=== PATIENT | female | born 1985 | race Caucasian/White ===

== ENCOUNTER 2019-01-04 16:10 | Inpatient (IN) | payer OTHER ==
[~2019-01-04] VITALS: Ht 167.6 cm; Wt 120.8 kg
[2019-01-04 16:20] VITALS: BP 135/75
--- NOTE | 2019-01-04 16:31 | NUR ---
PTS MOTHER AND FATHER AT BEDSIDE FOR SUPPORT.
[2019-01-04 17:00] LABS: BASO % 0.6 % (0.0-1.0); EOS # 0.2 10*3/uL (0.0-0.4); EOS % 2.5 % (1.0-4.0); HEMATOCRIT 35.1 % (37.0-47.0); HEMOGLOBIN 11.3 g/dl (12.0-16.0); LYMPH # 1.6 10*3/uL (1.3-4.4); LYMPH % 25.2 % (27.0-41.0); MEAN CELL VOLUME 86.7 fl (81.0-99.0); MEAN CORPUSCULAR HGB 27.9 pg (27.0-31.0); MEAN CORPUSCULAR HGB CONC 32.2 g/dl (33.0-37.0); MEAN PLATELET VOLUME 10.7 fl (9.6-12.3); MONO # 0.5 10*3/uL (0.1-1.0); MONO % 7.8 % (3.0-9.0); NEUT # 4.2 10*3/uL (2.3-7.9); NEUT % 63.6 % (47.0-73.0); PLATELET COUNT AUTOMATED 244 10*3/uL (130-400); RED BLOOD COUNT 4.05 10*6/uL (4.10-5.10); RED CELL DISTRI WIDTH 14.8 % (0-14.5); WHITE BLOOD COUNT 6.5 10*3/uL (4.8-10.8)
[2019-01-04 17:11] LABS: ACT PARTIAL THROMBO TIME 30.5 SECONDS (20.0-32.1)
[2019-01-04 17:38] LABS: ALBUMIN 3.3 gm/dl (3.1-4.5); ALKALINE PHOSPHATASE 85 U/L (45-117); BUN 13 mg/dl (7-24); CHLORIDE 105 mmol/L (98-107); CREATININE 0.77 mg/dL (0.55-1.02); POTASSIUM 3.4 mmol/L (3.5-5.1); SGOT/AST 14 IU/L (3-35); SGPT/ALT 26 U/L (12-78); SODIUM 138 mmol/L (136-145); TOTAL PROTEIN 7.5 gm/dL (6.4-8.2)
[2019-01-04 17:46] LABS: B-hCG (QUALITATIVE) NEGATIVE (NEGATIVE)
[2019-01-04 17:48] LABS: ETHYL ALCOHOL < 3.0 mg/dl (<3)
[2019-01-04 17:53] VITALS: BP 100/54
[2019-01-04 18:47] VITALS: BP 102/75
--- NOTE | 2019-01-04 18:59 | NUR ---
PT RECEIVED DINNER TRAY AT THIS TIME.
[2019-01-04 21:00] VITALS: BP 101/58
--- NOTE | 2019-01-04 21:00 | NUR ---
A 33yr old female, admitted to ICCU, under the services of JULIETTE Bautista DO with a diagnosis of CELLULITIS RT LEG, METHAMPHETAMINE USE, SUICIDAL IDEATIONS. Chief complaint is thinks the Meth she used yesterday was "messing with her brain". Patient arrived via stretcher from ER. Monitor applied. Initial assessment completed. Vital signs taken and recorded. See assessment for past medical history, medications and allergies. Patient and/or family oriented to unit. [facility] ICCU visitation policy reviewed. Clothing/patient valuable form completed. Patient arrives with an IV in her left external jugular. She has multiple scabs, scars and open areas to her arms. She had a capped, used Insulin syringe in her jeans pocket which she handed to us and asked us to discard. ARIC SEGURA L
--- NOTE | 2019-01-04 21:00 | NUR ---
PT. REFUSED MEASUREMENTS AND PICTURES OF GROIN ABSCESS AND MULTIPLE SMALL OPEN AREAS ON ARMS, LEGS, FACE AND TORSO.
--- NOTE | 2019-01-04 21:34 | NUR ---
PT. DENIES SUICIDAL IDEATION AT THIS TIME. SHE STATES IF SHE WANTED TO KILL HERSELF, SHE WOULD HAVE DONE IT BY NOW. HAS NO PLAN OR MEANS AT THIS TIME.
--- NOTE | 2019-01-04 21:36 | NUR ---
MARIN KNOTT NOTIFIED OF PT'S ADMISSION TO ICCU AND UPDATED ON STATUS. MAURILIO SCHMIDT RN
--- NOTE | 2019-01-04 21:39 | NUR ---
[facility] NOTIFIED OF CONSULT.
--- NOTE | 2019-01-04 22:24 | NUR ---
DR. TAVARES AWARE OF PT'S MULTIPLE LESIONS, SOME OPEN, SOME HEALING, SOME SCARRED. MAURILIO SCHMIDT RN
[2019-01-05] VITALS: BP 94/51
[2019-01-05 04:00] VITALS: BP 129/81
[2019-01-05 04:01] LABS: BILIRUBIN NEGATIVE (NEGATIVE); BLOOD NEGATIVE (NEGATIVE); CLARITY CLEAR (CLEAR); COLOR YELLOW (YELLOW); GLUCOSE NEGATIVE (NEGATIVE); KETONE TRACE (NEGATIVE); LEUKO ESTERASE NEGATIVE (NEGATIVE); NITRITE NEGATIVE (NEGATIVE); SPECIFIC GRAVITY 1.015 (1.005-1.030); UROBILINOGEN 0.2 E.U./dl (0.2-1.0)
[2019-01-05 04:09] LABS: BACTERIA TRACE; EPITHELIAL CELLS 16-20; RBC 0-2 rbc/hpf (0-2)
[2019-01-05 04:14] LABS: URINE AMPHETAMINES > 1000 (1000ng/ml); URINE BARBITURATES < 200 (200ng/ml); URINE BENZODIAZEPINES < 200 (200ng/ml); URINE CANNABINOIDS (THC) < 50 (50ng/ml); URINE COCAINE < 300 (300ng/ml); URINE OPIATES < 300 (300ng/ml)
[2019-01-05 04:17] LABS: URINE METHADONE < 300 (300ng/ml); URINE PHENCYCLIDINE < 25 (25ng/ml)
[2019-01-05 05:08] LABS: BASO % 0.6 % (0.0-1.0); EOS # 0.2 10*3/uL (0.0-0.4); EOS % 3.9 % (1.0-4.0); HEMATOCRIT 31.8 % (37.0-47.0); LYMPH # 1.2 10*3/uL (1.3-4.4); LYMPH % 22.9 % (27.0-41.0); MEAN CELL VOLUME 86.9 fl (81.0-99.0); MEAN CORPUSCULAR HGB 27.3 pg (27.0-31.0); MEAN CORPUSCULAR HGB CONC 31.4 g/dl (33.0-37.0); MEAN PLATELET VOLUME 11.5 fl (9.6-12.3); MONO # 0.4 10*3/uL (0.1-1.0); MONO % 7.8 % (3.0-9.0); NEUT # 3.3 10*3/uL (2.3-7.9); NEUT % 64.4 % (47.0-73.0); PLATELET COUNT AUTOMATED 227 10*3/uL (130-400); RED BLOOD COUNT 3.66 10*6/uL (4.10-5.10); WHITE BLOOD COUNT 5.1 10*3/uL (4.8-10.8)
[2019-01-05 05:20] LABS: INTERNATIONAL NORM RATIO 0.9 (2.0-3.5)
[2019-01-05 05:24] LABS: ALBUMIN 2.7 gm/dl (3.1-4.5); ALKALINE PHOSPHATASE 72 U/L (45-117); BUN 10 mg/dl (7-24); CHLORIDE 108 mmol/L (98-107); CHOLESTEROL 112 mg/dL (<200); CREATININE 0.84 mg/dL (0.55-1.02); PHOSPHOROUS 3.7 mg/dL (2.5-4.9); POTASSIUM 3.6 mmol/L (3.5-5.1); SGOT/AST 13 IU/L (3-35); SGPT/ALT 22 U/L (12-78); SODIUM 140 mmol/L (136-145); TOTAL PROTEIN 6.3 gm/dL (6.4-8.2); TRIGLYCERIDES 62 mg/dl (<150); VLDL CHOLESTEROL 12 mg/dL (6-40)
[2019-01-05 05:25] LABS: HDL CHOLESTEROL 46 mg/dl (40-60); LDL CHOLESTEROL 54 mg/dL (9-159)
--- NOTE | 2019-01-05 06:30 | NUR ---
PT. CRYING AND SWEARING.. ASKED WHAT GAME WE ARE PLAYING HERE? DOESNT REMEMBER BEING ADMITTED TO THE ICCU. VERY IRRITABLE AND TEARFUL. EXPLAINED WHY PATIENT WAS ADMITTED AND NEED TO STAY TO SEE DOCTORS THIS AM. PT. TALKING TO HERSELF AND SWEARING "WHY IS THIS HAPPENING TO ME?". SAYS HER HEAD IS ALL SCREWED UP. MUMBLING AND CRYING, UNABLE TO CONSOLE. MAURILIO SCHMIDT RN
--- NOTE | 2019-01-05 07:07 | NUR ---
PT. GIVEN ATIVAN ORDERED FOR AGGITATION AND RESTLESSNESS.
--- NOTE | 2019-01-05 07:22 | NUR ---
LONNIE CAMARGO [id number] Please refer to the physician's history and physical for past medical history, comorbid conditions, and allergies. Diagnosis: CELLULITIS OF RIGHT LEG AMPHETAMINE ABUSE CONTINUO Oswaldo Score: 23,LOW OR NO RISK WOUND DESCRIPTIONS: This nurse went to evaluate patients skin impairments. 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 Areas noted to face bilateral upper arms and bilateral lower arms. No drainage noted at time of assessment. Surface the patient is resting on: Isoflex SKIN PREVENTION RECOMMENDATION: 1. Pressure redistribution support surface as appropriate 2. Elevate heels 3. Remove boots/TEDS every shift and reapply 4. Head of bed 30 degrees as tolerated 5. Assess nutrition and hydration 6. Manage moisture 7. Avoid the use of containment devices while in bed 8. Use absorptive products on surfaces limit layers of linens on bed 9. Turn and reposition every 1-2 hours in bed and every 1 hour in chair as tolerated 10. Weight shifts every 15 minutes while up in chair 11. Offloading with pillows or device to keep heels elevated off bed 12. Monitor skin at least every shift 13. Inspect under medical devices twice a day WOUND TREATMENT RECOMMENDATIONS: Patient refused at this time. Cleanse all affected areas with soap and water and apply aquaphor daily.
[2019-01-05 07:29] LABS: VITAMIN D, 25-HYDROXY 16.2 ng/mL (30-100)
[2019-01-05 08:00] VITALS: BP 102/59
--- NOTE | 2019-01-05 08:01 | NUR ---
PT SLEEPING. EARLIER ATIVAN EFFECTIVE.
--- NOTE | 2019-01-05 08:23 | NUR ---
attempted to speak with client, she was given some ativan so she would not awaken, i will see her when she is awake.
--- NOTE | 2019-01-05 08:51 | NUR ---
Dr. Aguila notified of wound care recommendations.
--- NOTE | 2019-01-05 08:51 | NUR ---
PT REMAINS SLEEPING. AWAKENS FOR SHORT PDS OF TIME WITH STIMULI, MARIN KNOTT IN TO SEE PT EARLIER BUT PT WOULD NOT AWAKEN LONG ENOUGH FOR A CONVERSATION. MARIN STATED SHE WOULD RETURN WHEN PT IS MORE AWAKE.
--- NOTE | 2019-01-05 11:23 | NUR ---
DR BEAL IN TO SEE PT. PT IS SLEEPING. DR VILLANUEVA WILL RETURN TO SEE PT LATER.
--- NOTE | 2019-01-05 12:17 | NUR ---
PT'S MOTHER,JB, CALLED IN REGARDING PT'S CONDITION. SHE DID NOT KNOW PT'S PASSCODE. I WOKE EARL INFORMED HER OF HER MOTHER ON THE PHONE. LONNIE STATED IT WAS OK TO GIVE HER MOTHER THE PASSCODE AND GIVE HER INFO. ON HER CONDITION.
[2019-01-05 16:00] VITALS: BP 117/73
--- NOTE | 2019-01-05 16:05 | NUR ---
PT AWAKE AND ALERT. PT EATING LUNCH. PT DENIES COMPLAINTS AT THIS TIME.
--- NOTE | 2019-01-05 19:47 | NUR ---
PT DOZING. RESPIRATIONS UNLABORED. IN LINE OF SIGHT WITH ICU STAFF.
[2019-01-05 20:00] VITALS: BP 119/67
--- NOTE | 2019-01-05 23:06 | NUR ---
PT SLEEPING....SHE POSITIONS HERSELF IN BED FROM SIDE TO SIDE.
[2019-01-06] VITALS: BP 95/49
[2019-01-06 04:00] VITALS: BP 108/78
[2019-01-06 04:40] LABS: BASO % 0.8 % (0.0-1.0); EOS # 0.2 10*3/uL (0.0-0.4); EOS % 4.5 % (1.0-4.0); HEMATOCRIT 31.7 % (37.0-47.0); HEMOGLOBIN 9.8 g/dl (12.0-16.0); LYMPH # 1.6 10*3/uL (1.3-4.4); MEAN CELL VOLUME 88.1 fl (81.0-99.0); MEAN CORPUSCULAR HGB 27.2 pg (27.0-31.0); MEAN CORPUSCULAR HGB CONC 30.9 g/dl (33.0-37.0); MEAN PLATELET VOLUME 11.2 fl (9.6-12.3); MONO # 0.4 10*3/uL (0.1-1.0); MONO % 9.8 % (3.0-9.0); NEUT # 1.8 10*3/uL (2.3-7.9); NEUT % 45.6 % (47.0-73.0); PLATELET COUNT AUTOMATED 215 10*3/uL (130-400); RED CELL DISTRI WIDTH 15.3 % (0-14.5)
[2019-01-06 04:52] LABS: BUN 7 mg/dl (7-24); CHLORIDE 109 mmol/L (98-107); CREATININE 0.72 mg/dL (0.55-1.02); POTASSIUM 3.5 mmol/L (3.5-5.1); SODIUM 141 mmol/L (136-145)
[2019-01-06 08:00] VITALS: BP 113/72
--- NOTE | 2019-01-06 08:46 | NUR ---
PT SLEEPING. VSS. NO ACUTE DISTRESS NOTED.
--- NOTE | 2019-01-06 09:03 | NUR ---
Dr. Aguila notified of wound care recommendations.
--- NOTE | 2019-01-06 09:51 | NUR ---
PT ASKED IF SHE IS ABLE TO "SIGN HERSELF OUT...I JUST WANT TO GO HOME." I DISCUSSED WITH HER THAT SHE STILL NEED STO BE SEEN BY MARIN KNOTT AND DR BEAL R/T HER PREVIOUS SUICIDAL IDEATIONS FROM ER. WILL UPDATE DOCTOR.
--- NOTE | 2019-01-06 09:55 | NUR ---
SPOKW WITH DR DE R/T PT VOICING THAT SHE WANTS TO SIGNS OUT AND LEAVE. SHE WILL UPDATE DR OLVERA.
--- NOTE | 2019-01-06 10:05 | NUR ---
CALLED DR BEAL'S OFFICE STAFF MEMBER. SHE STATES DR BEAL'S FIRST APPT. IS AT 11AM THIS AM. SHE IS UNAWARE IF DR BEAL IS COMING IN EARLY TO SEE THE PT OR SHE WILL SEE HER INBETWEEN PT'S.
--- NOTE | 2019-01-06 10:08 | NUR ---
DR DE IN AND FILLED OUT PINK SLIP FOR PT DUE TO HER PREVIOUS SUICIDAL IDEATIONS IN ER.
--- NOTE | 2019-01-06 10:10 | NUR ---
SPOKE WITH MARIN KNOTT R/T PT'S WISHES TO SIGNS OUT AND PT'S NEW PINK SLIP. SHE WILL BE IN TO SEE PT SHORTLY.
--- NOTE | 2019-01-06 10:19 | NUR ---
DR OLVERA IN TO SEE PT.
--- NOTE | 2019-01-06 10:46 | NUR ---
MARIN KNOTT IN TO SEE PT. MARIN STATED SHE DID NOT FEEL THAT PT IS SUICIDAL AND COULD BE DISCHARGED HOME. SHE GAVE PT INFO. [facility] [place], [place].
--- NOTE | 2019-01-06 10:58 | NUR ---
met with client, she is abusing meth and she said she was looking for detox when she came to the er, she said that when she came to the er she said she wished she was because of the abuse, but she does not want to kill herself and she said she had no plan, she is denying suicidal ideation to me, she said that she is homeless so i spoke with her about the rescue mission in [place] and gave her that information, she said that she would see if her mom would take her there, client has pa ins and so she would need to see detox there and she stated understanding, she can be dc to home.discussed with her nurse, dr nolan.
--- NOTE | 2019-01-06 10:58 | NUR ---
DR BEAL IN TO SEE PT. DR BEAL FEELS PT IS SAFE TO BE DISCHARGED TODAY FROM [facility]. PT IS NOT A HARM TO HERSELF AT THIS TIME. I SPOKE WITH ADRIAN CASPER,STEEL TURNER, REGARDING PT BIENG HOMELESS. SHE WILL HAVE ROLANDO BRING DOWN A LIST OF HOMELESS SHELTERS AND FOOD GAMEZ IN THE AREA.
--- NOTE | 2019-01-06 11:10 | NUR ---
DR DE UPDATED THAT PT HAS BEEN CLEARED FOR DISCHRGE BY DR BEAL AND MARIN KNOTT. DR DE STATED THAEY WERE ALREADY INFORMED.
[2019-01-06 12:00] VITALS: BP 115/67
--- NOTE | 2019-01-06 12:33 | NUR ---
MAINFRAME DEVELOPER received notice the patient wanted more information on homeless shelters. MAINFRAME DEVELOPER provided the patient with local shelters for this area as well as those near [place], [place]. MAINFRAME DEVELOPER also provided her with a list of local pantries in this area. Patient stated she did have a cell phone, MAINFRAME DEVELOPER provided her with a number to text to find local pantries in her area. MAINFRAME DEVELOPER asked the patient if she could stay with her parents. The patient stated "no", but that her parents would provide transportation for her if needed. Patient had no other request at this time. -LESLIE Ortega
[2019-01-06 16:00] VITALS: BP 112/59
--- NOTE | 2019-01-06 16:10 | NUR ---
PT TRYING TO GET HER FAMILY TO PICK HER UP FOR DISCHARGE.
--- NOTE | 2019-01-06 19:43 | NUR ---
AWAITING MOTHER'S ARRIVAL. IV REMOVED FROM LT NECK AND DRESSING APPLIED. DISCHARGE INSTRUCTIONS REVIEWED AND HELP HOT LINE NUMBER SPECIFICALLY POINTED OUT. SHE DENIES SUICIDAL IDEATIONS AND IS GETTING DRESSED FROM HER HOME CLOTHING. SHE ALSO REVIEWED HER CLOTHING LIST AND SIGNED IT.
--- NOTE | 2019-01-06 19:58 | NUR ---
PT LEFT, CLOTHED AND WITH BELONGINGS. MOTHER WAS WITH HER. SHE TOOK HER BELONGINGS.
== END 2019-01-06 19:58 | disposition home or self-care (01) | DRG 812 ==
LOC: ED 16:10 → ICCU 18:56 → EDHOLD 18:56 → ICCU 19:58
PROVIDERS: Emergency Medicine; Internal Medicine; Student in an Organized Health Care Education/Training Program; ADMIT Emergency Medicine
DX: T43.621A Poisoning by amphetamines, accidental (unintentional), initial encounter (principal); L03.115 Cellulitis of right lower limb; E66.01 Morbid (severe) obesity due to excess calories; F32.9 Major depressive disorder, single episode, unspecified; E87.6 Hypokalemia; E87.8 Other disorders of electrolyte and fluid balance, not elsewhere classified; E43 Unspecified severe protein-calorie malnutrition; F15.19 Other stimulant abuse with unspecified stimulant-induced disorder; I89.0 Lymphedema, not elsewhere classified; E55.9 Vitamin D deficiency, unspecified; R06.82 Tachypnea, not elsewhere classified; R45.851 Suicidal ideations; D64.9 Anemia, unspecified; I95.89 Other hypotension; R73.9 Hyperglycemia, unspecified; D72.810 Lymphocytopenia; Z68.41 Body mass index [BMI] 40.0-44.9, adult; Z90.710 Acquired absence of both cervix and uterus; Y92.89 Other specified places as the place of occurrence of the external cause